=== PATIENT | female | born 1955 | race African-American/Black ===

== ENCOUNTER 2020-06-29 16:08 | Outpatient (CLI) | payer MEDICARE, OTHER, SELFPAY ==
--- NOTE | ~2020-06-29 | MM_ITS ---
EXAMINATION: MM screening [facility] BI w yuli HISTORY: Screening TECHNIQUE: Craniocaudal and mediolateral oblique 3-D tomosynthesis images were obtained and synthetic 2-D images were generated. CAD analysis was submitted and interpreted. COMPARISON: Comparison to multiple prior studies sequentially, with oldest reviewed study dated 04/02. BREAST PARENCHYMAL COMPOSITION: The breasts are extremely dense, which lowers the sensitivity of mamm ography FINDINGS: There is a developing cluster of indeterminate calcifications in the upper outer quadrant o f the left breast, middle third. The right breast is stable without evidence for malignancy. IMPRESSION: 1. Developing cluster of indeterminate calcifications in the left breast. 2. Magnification views are recommended. BI-RADS Category 0: Incomplete: Needs additional imaging evaluation. Reviewed, dictated and finalized at location A.
== END 2020-06-29 16:09 | disposition home or self-care (01) ==
PROVIDERS: Visit Provider Family Medicine
DX: Z12.31 Encounter for screening mammogram for malignant neoplasm of breast (principal); R92.8 Other abnormal and inconclusive findings on diagnostic imaging of breast
CPT/HCPCS: 77063; 77067

== ENCOUNTER 2020-07-25 12:27 | Outpatient (CLI) | payer MEDICARE, OTHER, SELFPAY ==
--- NOTE | ~2020-07-25 | MM_ITS ---
EXAMINATION: MM diagnostic mammo unilat LT HISTORY: Left breast calcifications on screening mammogram TECHNIQUE: Additional images of the left breast were performed. CAD analysis was submitted and interp reted. COMPARISON: 06/29/2020, 05/10/2015, 06/26/2012 FINDINGS: There are grouped coarse heterogeneous calcifications in the middle third of the upper oute r quadrant of the breast at the 2:00 location 6.5 cm from the nipple. No associated mass is identifie d. IMPRESSION: 1. Suspicious left breast calcifications. 2. Stereotactic biopsy is recommended. BI-RADS category 4, suspicious findings. Reviewed, dictated and finalized at location A.
== END 2020-07-25 12:28 | disposition home or self-care (01) ==
PROVIDERS: Visit Provider Nurse Practitioner
DX: R92.1 Mammographic calcification found on diagnostic imaging of breast (principal)
CPT/HCPCS: 77065

== ENCOUNTER 2020-08-01 10:37 | Outpatient (CLI) | payer MEDICARE, OTHER, SELFPAY ==
--- NOTE | ~2020-08-01 | MM_ITS ---
EXAMINATION: MM post biopsy diagnostic LT HISTORY: Post stereotactic biopsy mammogram TECHNIQUE: ML and cc views of left breast immediately following stereotactic biopsy of upper outer qu adrant microcalcifications . COMPARISON: 07/25/2020 diagnostic left mammogram 08/01/2020 left stereotactic breast biopsy FINDINGS: A biopsy marker has successfully deployed in the upper outer quadrant at the site of previo usly reported microcalcifications. Only a few very small microcalcifications remain, the bulk of the microcalcifications having been suc cessfully removed by the stereotactic biopsy. IMPRESSION: Successful stereotactic biopsy of left upper outer quadrant microcalcifications Reviewed, dictated and finalized at location A.
--- NOTE | ~2020-08-01 | MM_ITS ---
EXAMINATION: MM stereotactic bx LT, Specimen Radiograph, Tissue Marker Clip Placement, Unilateral Papa mogram DATE: 08/01/2020 11:47 INDICATION: Abnormal mammogram: Coarse heterogeneous microcalcifications in middle third of upper out er quadrant of left breast at 2:00 6.5 cm from nipple. TECHNIQUE AND FINDINGS: The risks and potential benefits of the procedure were discussed with the patient and written informe d consent was obtained. Timeout procedure was performed. The patient was placed in the prone position on the dedicated stereotactic table with the left breast in lateral medial compression, and the area of interest was localized and targeted utilizing digital imaging with stereotaxis. After sterile preparation of the skin, 1% lidocaine was utilized for local anesthesia at the skin pun cture site and 1% lidocaine with epinephrine was utilized for deeper local anesthesia/is about the bi opsy site. A 9G Exotel vacuum assisted biopsy needle was advanced to the level of the calcification o f interest from a lateral approach utilizing stereotactic guidance and a total of 14 tissue core biop sies were obtained. A specimen radiograph demonstrates that the calcifications of interest are included within the tissue cores. A tissue marker clip was then placed at the biopsy site. A digital mammographic exposure co nfirmed the successful deployment of the biopsy marker. The needle was removed and hemostasis was ac hieved. A sterile bandage was applied. The patient tolerated the procedure well and there is no luana dence of significant immediate complication. The patient was given verbal as well as written postpro cedural instructions prior to discharge from the department. Tissue cores were submitted to surgical pathology for histologic analysis. A 2-view left unilateral digital mammogram was obtained post procedure, demonstrating the tissue rashmi er clip in expected position and all but a few of the targeted microcalcifications no longer present, having been successfully excised. IMPRESSION: 1. Successful stereotactic biopsy of left upper outer quadrant breast microcalcifications, followed by tissue marker clip placement. Please refer to pathology report for histologic analysis. Reviewed, dictated and finalized at Location A. Reviewed, dictated and finalized at location A. IMPRESSION: 1. Successful stereotactic biopsy of left upper outer quadrant breast microca lcifications, followed by tissue marker clip placement. Please refer to pathol ogy report for histologic analysis.
--- NOTE | ~2020-08-01 | MM_ITS ---
MM stereotactic specimen LT DATE: 08/01/2020 11:47 INDICATION: Stenting the biopsy of upper quadrant left breast microcalcifications TECHNIQUE: Digital mammographic noncompression exposure of left upper outer quadrant breast stereotac tic biopsy specimen tissue COMPARISON: 07/25/2020 diagnostic left mammogram 07/25/2020 left stereotactic biopsy FINDINGS: Numerous microcalcifications of interest with associated soft tissue density are present wi thin the specimen tissue. The mammographic features suggest benign calcifications of fibroadenoma. IMPRESSION: Successful stereotactic biopsy yielding numerous microcalcifications of interest from the upper outer quadrant of the left breast Reviewed, dictated and finalized at Location A. Reviewed, dictated and finalized at location A. IMPRESSION: Successful stereotactic biopsy yielding numerous microcalcification s of interest from the upper outer quadrant of the left breast
== END 2020-08-01 10:38 | disposition home or self-care (01) ==
PROVIDERS: Visit Provider Nurse Practitioner Family
DX: R92.1 Mammographic calcification found on diagnostic imaging of breast (principal)
CPT/HCPCS: 19081; 77065; 88305; A4648

== ENCOUNTER 2021-07-11 09:20 | Emergency (ER) | payer MEDICARE, OTHER, SELFPAY ==
[2021-07-11] VITALS (10 sets, daily range): BP systolic 129–132; BP diastolic 73–77; PULSE 65–92; RESP 10–17; TEMP 36.9; O2SAT 98–100
--- NOTE | 2021-07-11 09:52 | ED.GENADULT ---
HPI - General Adult General Chief complaint: Allergic Reaction Stated complaint: lip swelling Time Seen by Provider: 07/11/21 09:38 Source: patient Mode of arrival: ambulatory Limitations: no limitations History of Present Illness HPI narrative: Patient is a 65-year-old female who presents the ED with report of lip swelling. Patient reports she woke up yesterday morning with swelling in her left upper lip. The swelling began to spread diffusely across her upper lip and is now involving her lower lip as well. She took 1 Benadryl [id number] yesterday, but has not taken anything for symptoms today. She denies any swelling of her tongue, difficulty breathing, difficulty swallowing or maintaining secretions, nausea, vomiting, diarrhea, abdominal pain, sore/scratchy/ itchy throat, swelling elsewhere, vision changes, itching, rash, hives. Denies any new face wash, lotions, make-up, laundry detergent. Denies being outside recently or sustaining any bug bites. Patient is on lisinopril since 2004 when she had a CVA. No other new medications. Related Data Home Medications Medication Instructions Recorded Confirmed atorvastatin 40 mg tablet tablet 07/11/21 clopidogrel 75 mg tablet tablet 07/11/21 cyclosporine 0.05 % eye drops in a drp 07/11/21 dropperette (Restasis) lisinopril 40 mg tablet tablet 07/11/21 metformin 1,000 mg tablet tablet 07/11/21 quetiapine 200 mg tablet tablet 07/11/21 ropinirole 2 mg tablet,extended tablet PO 07/11/21 release 24 hr Allergies Allergy/AdvReac Type Severity Reaction Status Date / Time Penicillins Allergy Unknown Rash Verified 07/11/21 09:31 Review of Systems Review of Systems: CONSTITUTIONAL: Denies fever, chills, or sweats. EYES: Denies visual changes, redness, eyelid swelling. ENT: Reports swelling of lips. Denies swelling of tongue, sensation of throat closing, dysphagia, difficulty maintaining secretions, itchy throat, rhinorrhea, congestion, sore throat. CARDIOVASCULAR: Denies chest pain. RESPIRATORY: Denies cough or dyspnea. GASTROINTESTINAL: Denies abdominal pain, nausea, vomiting, or diarrhea. GENITOURINARY: Denies dysuria or hematuria. SKIN: Denies rash, hives, or itching. NEUROLOGIC: Denies headache. All systems reviewed & are unremarkable except as noted in HPI and below PMFSH Past Medical History Medical History (Updated 07/11/21 @ 12:05 by Domenica Montez PA-C) CVA (cerebral vascular accident) Diabetes Hypercholesterolemia Hypertension Surgical History Surgical History (Updated 07/11/21 @ 14:25 by Domenica Montez PA-C) No pertinent past surgical history Social History Social History (Updated 07/11/21 @ 14:25 by Domenica Montez PA-C) Smoking status: Never smoker Exam Narrative: GENERAL: Well appearing, well-nourished, non-toxic, in no acute distress. HEAD: Normocephalic, atraumatic. EYES: PERRL/EOMI, conjunctivae clear bilaterally. No swelling around eyelids. NOSE: Normal, no drainage. THROAT: Pharynx clear, no exudate. MMs moist. No posterior erythema. No swelling of tongue or tonsils. Diffuse swelling of upper and lower lips consistent with angioedema. No mucosal lesions. NECK: Supple. No adenopathy, no masses. RESPIRATORY: Airway patent, respirations nonlabored. Clear to auscultation bilaterally, no rales, rhonchi, wheezing. CARDIOVASCULAR: Regular rate and rhythm without murmurs, rubs, or gallops. Radial pulses 2+ and equal bilaterally. ABDOMINAL: Soft, nontender, nondistended, no hepatosplenomegaly. Normoactive BS. MUSCULOSKELETAL: Moves all extremities. Strength/ROM intact without gross deformities. SKIN: Warm, dry, normal color. No rashes. NEURO: A&O X3. Speech clear. Cranial nerves II-XII grossly intact. Steady gait. No ataxic movements. PSYCHIATRIC: Appropriate mood and affect. Normal interaction. Course Consultations Consultation #1: Discussed case with Dr. Naqvi, PCP, patient presentation and work-up. Advised someone from the off
[2021-07-11] MEDS: methylPREDNISolone SOD SUCC 125 MG VIAL IV PUSH (10:03)
[2021-07-11] MEDS: FAMOTIDINE 20 MG/2 ML VIAL IV PUSH (10:03)
[2021-07-11] MEDS: diphenhydrAMINE HCl INJ 50 MG/ML VIAL IV PUSH (10:03)
--- NOTE | 2021-07-11 10:49 | PC.NURSE ---
Small decrease in swelling to upper lip.
== END 2021-07-11 12:35 | disposition home or self-care (01) ==
PROVIDERS: Emergency Provider Emergency Medicine
DX: T78.3XXA Angioneurotic edema, initial encounter (principal); E11.9 Type 2 diabetes mellitus without complications; E78.00 Pure hypercholesterolemia, unspecified; I10 Essential (primary) hypertension; Z86.73 Personal history of transient ischemic attack (TIA), and cerebral infarction without residual deficits; Z79.84 Long term (current) use of oral hypoglycemic drugs
CPT/HCPCS: 96374; 96375; 99284; J1200; J2930

== ENCOUNTER 2023-01-13 12:27 | Emergency (ER) | payer MEDICARE, OTHER, SELFPAY ==
[2023-01-13] VITALS (12 sets, daily range): BP systolic 131–151; BP diastolic 69–86; PULSE 60–110; RESP 12–18; TEMP 36.9; O2SAT 100
--- NOTE | ~2023-01-13 | CT_ITS ---
EXAMINATION: CTA chest PE protocol DATE: 01/13/2023 20:52 INDICATION: Left chest pain. TECHNIQUE: Computed tomography angiography (CTA) of the chest was performed with 100 mL Omnipaque-350 intravenous contrast timed to evaluate the pulmonary arteries. Coronal maximum intensity projection 3D-reconstructions were created by the technologist. Automated exposure control and iterative reconst ruction technique were employed. The dose-length product was 440.49 mGy-cm. COMPARISON: Chest 2 views 01/13/2023 FINDINGS: There is mild emphysema. There is minimal atelectasis bilaterally. No pleural effusion. The re are nodules in the thyroid measuring up to 8 mm, likely not clinically significant. The heart size is normal. No pericardial effusion. There is diffuse hepatic steatosis. There is no pulmonary embolu s. There is severe thoracic spondylosis. IMPRESSION: 1. No pulmonary embolus. 2. Mild emphysema. Reviewed, dictated and finalized at location E. METRY ASSISTANT
--- NOTE | ~2023-01-13 | XR_ITS ---
EXAMINATION: XR chest 2V DATE: 01/13/2023 17:32 INDICATION: Chest pain. TECHNIQUE: Frontal and lateral views of the chest were obtained. COMPARISON: Chest single view 12/25/2024 FINDINGS: There is mild scarring at the lung apices. No pleural effusion or pneumothorax. The heart s ize is normal. IMPRESSION: 1. Mild scarring at the lung apices. Reviewed, dictated and finalized at location E. ER DEADENER
--- NOTE | 2023-01-13 16:58 | ECG_ITS ---
Measurements Intervals [place] Rate: 62 P: 59 OK: 140 QRS: 1 QRSD: 86 T: 0 QT: 410 QTc: 419 Interpretive Statements SINUS RHYTHM MODERATE VOLTAGE CRITERIA FOR LVH, CONSIDER NORMAL VARIANT [MEETS CRITERIA IN ONE OF: R(aVL), S(V1), R(V5), R(V5/V6)+S(V1)] NO PREVIOUS ECG AVAILABLE FOR COMPARISON Electronically Signed On 01-14-2023 13:22:24 HAZARDOUS MATERIALS ANALYST by Izabella Rios M.D.
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
[2023-01-13 17:24] LABS: Basophils Absolute Auto 0.1 K/mm3 (0.0-0.1); Basophils Percent Auto 0.7 % (0.2-1.2); Eosinophils Absolute Auto 0.1 K/mm3 (0-0.3); Eosinophils Percent Auto 0.9 % (0-4.4); Hematocrit 42.9 % (37.0-47.0); Hemoglobin 13.3 g/dL (12.0-15.0); Immature Granulocyte Absolute 0.02 K/mm3 (0.00-0.031); Immature Granulocyte Percent A 0.3 % (0-0.5); Lymphocytes Absolute Auto 2.26 K/mm3 (0.9-3.2); Lymphocytes Percent Auto 32.2 % (18.3-44.2); Mean Corpuscular Hemoglobin 26.4 pg (26-34); Mean Corpuscular Volume 85.3 fl (80-100); Mean Platelet Volume 8.5 fl (7.4-10.4); Monocytes Absolute Auto 0.4 K/mm3 (0.1-0.6); Monocytes Percent Auto 5.7 % (2.6-8.5); Neutrophils Absolute Auto 4.2 K/mm3 (1.3-6.7); Neutrophils Percent Auto 60.2 % (45.5-73.1); Platelet Count Result 313 k/mm3 (150-375); Red Blood Count 5.03 M/mm3 (4.2-5.4); Red Cell Distribution Width 16.2 % (11.5-14.5)
[2023-01-13 17:36] LABS: INR 0.9; Prothrombin Time 12.8 Seconds (11.1-14.7)
[2023-01-13 17:37] LABS: Partial Thromboplastin Time 23.3 SECONDS (22.3-36.8)
[2023-01-13 17:44] LABS: Alanine Aminotransferase 33 U/L (6-35); Alkaline Phosphatase 90 U/L (38-126); Anion Gap 11 mmol/L (8-16); Aspartate Amino Transferase 33 U/L (14-36); Bilirubin,Total 0.5 mg/dL (0.2-1.3); Blood Urea Nitrogen 11 mg/dL (7-17); Calcium 10.1 mg/dL (8.4-10.2); Carbon Dioxide 23 mmol/L (22-30); Chloride 105 mmol/L (98-107); Estimated CRCL calculation 70 ml/min; Estimated Glomerular Filt Rate > 60; Glucose 94 mg/dL (65-110); Lipase 106 U/L (23-300); Potassium 4.2 mmol/L (3.4-5.0); Sodium 139 mmol/L (137-145)
[2023-01-13 17:52] LABS: NT Pro B Type Natriuretic Pept 110 pg/mL (19.9-100)
[2023-01-13 17:55] LABS: Troponin I < 0.012 ng/mL (0.000-0.034)
[2023-01-13] MEDS: MORPHINE SULFATE (*CRX) 4 MG/ML INJ IV PUSH (20:49)
[2023-01-13] MEDS: SODIUM CHLORIDE 0.9% IV 1,000 ML 999 ML IV CONT (20:49)
[2023-01-13 20:54] LABS: Troponin I < 0.012 ng/mL (0.000-0.034)
[2023-01-13 21:10] LABS: Influenza A QL RT-PCR Negative (Negative); Influenza B QL RT-PCR Negative (Negative); RSV RNA, RT-PCR Negative (Negative); SARS-CoV-2 RNA PCR Negative (Negative)
== END 2023-01-13 22:00 | disposition home or self-care (01) ==
PROVIDERS: Physician Assistant; Emergency Provider Emergency Medicine
DX: R07.89 Other chest pain (principal); Z20.822 Contact with and (suspected) exposure to COVID-19; I10 Essential (primary) hypertension; E78.5 Hyperlipidemia, unspecified; E11.9 Type 2 diabetes mellitus without complications; Z86.73 Personal history of transient ischemic attack (TIA), and cerebral infarction without residual deficits; Z79.84 Long term (current) use of oral hypoglycemic drugs; J43.9 Emphysema, unspecified
CPT/HCPCS: 36415; 71046; 71275; 80053; 83690; 83880; 84484; 85025; 85610; 85730; 87637; 93005; 96361; 96374; 99284; J2270; J7030; Q9967

== ENCOUNTER 2023-07-25 15:02 | Outpatient (CLI) | payer MEDICARE, OTHER, SELFPAY ==
--- NOTE | ~2023-07-25 | XR_ITS ---
XR foot RT min 3V Ordering provider: Jair Merida, CAMPAIGN MANAGER History: . Rt foot pain x several years. no injury . Comparison: None. FINDINGS: BONES: No acute fracture or dislocation. JOINT SPACES: Narrowing of the proximal and distal interphalangeal joints of the lateral 4 fingers. H ammer toes are possible. No tarsal coalition. SOFT TISSUES: Normal. IMPRESSION: No acute osseous abnormality of the right foot. Reviewed, dictated and finalized at location A.
== END 2023-07-25 15:03 | disposition home or self-care (01) ==
LOC: ANHIMG 15:04
PROVIDERS: Visit Provider Registered Nurse
DX: M79.671 Pain in right foot (principal)
CPT/HCPCS: 73630

== ENCOUNTER 2024-03-10 12:49 | Outpatient (CLI) | payer MEDICARE, SELFPAY ==
--- NOTE | ~2024-03-10 | MM_ITS ---
EXAMINATION: MM screening [facility] BI w yuli HISTORY: Screening TECHNIQUE: Craniocaudal and mediolateral oblique 3-D tomosynthesis images were obtained and synthetic 2-D images were generated. CAD analysis was submitted and interpreted. COMPARISON: 06/11/2020 BREAST PARENCHYMAL COMPOSITION: Not dense: There are scattered areas of fibroglandular density. FINDINGS: There is a developing indistinct mass in the upper outer quadrant of the right breast, midd le third. There is a stable mass in the upper outer quadrant of the left breast which was previously biopsy-proven benign. IMPRESSION: 1. Developing right breast mass with indistinct margins in the upper outer quadrant. 2. Additional mammographic views and possible breast ultrasound are recommended. BI-RADS Category 0: Incomplete: Needs additional imaging evaluation. Reviewed, dictated and finalized at location A. RVISOR PHOTOCOMPOSITION IMPRESSION: 1. Developing right breast mass with indistinct margins in the upper outer quad rant. 2. Additional mammographic views and possible breast ultrasound are recommended . BI-RADS Category 0: Incomplete: Needs additional imaging evaluation.
== END 2024-03-10 12:50 | disposition home or self-care (01) ==
PROVIDERS: PCP Registered Nurse; Visit Provider Registered Nurse
DX: Z12.31 Encounter for screening mammogram for malignant neoplasm of breast (principal); R92.8 Other abnormal and inconclusive findings on diagnostic imaging of breast
CPT/HCPCS: 77063; 77067

== ENCOUNTER 2024-04-28 09:20 | Outpatient (CLI) | payer MEDICARE, OTHER, SELFPAY ==
--- NOTE | ~2024-04-28 | US_ITS ---
US arterial ankle brachial ind INDICATION: Osteoporosis TECHNIQUE: Segmental pressures and plethysmographic and Doppler waveforms of the brachial and lower e xtremity arteries were obtained. COMPARISON: None. FINDINGS: Right and left brachial artery pressures of 124 mm Hg and 123 mm Hg, respectively, are concordant (no rmal difference <= 30 mmHg). The right ankle-brachial index (SHANTAL) is 1.15 (normal >= 0.9-1.0). The right great toe-brachial index (TBI) is 0.84 (normal >= 0.60). There is triphasic flow in the posterior tibial artery. There is biph asic flow in the dorsalis pedis artery. The left SHANTAL is 1.14. The left TBI is 0.98. There is biphasic flow in the posterior tibial artery. Th ere is triphasic flow in the dorsalis pedis artery. IMPRESSION: 1. Normal ankle-brachial indices. Reviewed, dictated and finalized at location B.
--- OUTSIDE RECORDS SUMMARY | 2024-04-28 10:21 | XMS_ITS | Clinical Summary ---
Author Organization [facility] Address [address] [place] [address] Care Team Providers Care Plate Cutter Name Role Phone [facility], [address] [place] [address] Primary Care Prov ider Source Comments [facility] [employer],non-owned Affiliates and Associated Physician Practices is amultiple site organization consisting of ambulatory clinics and hospital sitesin [place], [place], [place] and [place]. This disclosure is being madepursuant to the Care Everywhere program and may not contain all information available regarding this patient. Last updated 17.[facility] Allergies Active Allergy Reactions Criticality Noted Date Comments Penicillin G Rash Medium 10/01/2011 Medications * Be aware that medications may not be up to date on this document. Alwaysverify current medications with the patient. Medication Sig Dispensed Refills Start Date End Date Status atorvastatin (LIPITOR) 40 MG tablet Take 40 mg by mouth once daily 07/30/2016 Active QUEtiapine (SEROQUEL) 200 MG tablet Take 200 mg by mouth 3 times daily 09/26/2016 Active lisinopril (PRINIVIL; ZESTRIL) 40 MG tablet Take 40 mg by mouth once daily 08/01/2016 Active metFORMIN (GLUCOPHAGE) 1000 MG tablet 1,000 mg 2 times daily with morning and evening meal 08/01/2016 Active cycloSPORINE (RESTASIS) 0.05 % ophthalmic suspension 2 times daily 09/29/2015 Active clopidogrel (PLAVIX) 75 MG tablet Take 75 mg by mouth once daily 11/11/2017 Active CALTRATE 600+D 600-800 MG-UNIT tablet 08/20/2017 Active LYRICA 75 MG capsule Take by mouth once daily 08/22/2017 Active VITAMIN E PO Take 1 tablet by mouth once daily Active rOPINIRole XL 24hr (REQUIP XL) 2 MG tablet TAKE 1 TABLET BY MOUTH EVERY NIGHT 90 tablet 3 07/23/2021 Active amLODIPine (Norvasc) 10 MG tablet 10/18/2021 Active Active Problems Problem Noted Date Diagnosed Date Borderline glaucoma, open angle with borderline findings 05/08/2021 Disorder of bone and cartilage 05/08/2021 Essential hypertension 05/08/2021 Overview (05/08/2021): reasonable control reasonable control reasonable control reasonable control Hereditary and idiopathic peripheral neuropathy 05/08/2021 Horseshoe tear of retina without detachment 04/11 Other and unspecified hyperlipidemia 05/08/2021 Overview (05/08/2021): at goals post CVA at goals post CVA at goals post CVA Low back pain 05/08/2021 Other chronic pain 05/08/2021 Other depressive disorder 05/08/2021 Presbyopia 05/08/2021 Reason for consultation 05/08/2021 Speech disturbance 05/08/2021 Lumbar radiculopathy 05/08/2021 Current smoker 05/08/2021 Type 2 or unspecified type diabetes mellitus Overview (05/08/2021): Pt appears to be doing well. Will continue current medications (refilled as below). Will check labs as it has been 6 months since last checked. Pt to follow-up in approximately 3-6 months or sooner prn. good control, cont tight glyc control Pt appears to be doing well. Will continue current medications (refilled as below). Will check labs as it has been 6 months since last checked. Pt to follow-up in approximately 3-6 months or sooner prn. good control, cont tight glyc control good control, cont tight glyc control Pt appears to be doing well. Will continue current medications (refilled as below). Will check labs as it has been 6 months since last checked. Pt to follow-up in approximately 3-6 months or sooner prn. Pt appears to be doing well. Will continue current medications (refilled as below). Will check labs as it has been 6 months since last checked. Pt to follow-up in approximately 3-6 months or sooner prn. good control, cont tight glyc control Pt appears to be doing well. Will continue current medications (refilled as below). Will check labs as it has been 6 months since last checked. Pt to follow-up in approximately 3-6 months or sooner prn. good control, cont tight glyc control Type 2 diabetes mellitus wit h diabetic neuropathy, unspecified 08/01/2016 Sequelae of cerebral infarction 12/21/2013 Arterial ischemic stroke, chronic 12/21/2013 Immunizations Name Administration Dates Next Due Pneumococcal Pcv13 Conj 10/19/2014 TD VACCINE 06/03/1990 TDAP (7yrs+) 09/21/2010 ZOSTER VACCINE, LIVE 08/01/2016 Family History Medical History Relation Name Comments Hypertension Father CVA Mother Hypertension Mother Depression Neg Hx Seizures Neg Hx Relation Name Status Comments Father Mother Social History Tobacco Use Types Packs/Day Years Used Date Smoking Tobacco: Some Days Cigarettes Cigars Smokeless Tobacco: Never Tobacco Cessation:Ready to Q uit: No; Counseling Given: Yes Alcohol Use Standard Drinks/Week Comments Not Currently 0 (1 standard drink = 0.6 oz pur e alcohol) Sex and Gender Information Value Date Recorded Sex Assigned at Not on file Gender Identity Not on file Sexual Orientation Not on file Last Filed Vital Signs Vital Sign Reading Time Taken Comments Blood Pressure 122/79 11/27/2021 8:58 AM CDT Pulse 99 11/27/2021 8:58 AM CDT Temperature 36.4 C (97.6 F) 11/27/2021 8:58 AM CDT Respiratory Rate 16 03/21/2015 10:54 AM 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 Oxygen Saturation 98% 11/27/2021 8:58 AM CDT Inhaled Oxygen Concentration - - Weight 82.2 kg (181 lb 3.2 oz) 11/27/2021 8:58 A M CDT Height 167.6 cm (5' 6 ) 11/27/2021 8:58 AM CDT Body Mass Index 29.25 11/27/2021 8:58 AM CDT Plan of Treatment Health Maintenance Due Date Last Done Comments BONE DENSITY TESTING 1955 COLOGUARD (AGES 45-75) - COL ON CA SCREENING 1955 COLON MONITORING 1955 COLONOSCOPY - COLON CA SCREENING 1955 CT COLONOGRAPHY - COLON CA SCREENING 1955 Colorectal Cancer Screening 1955 FIT - COLON CA SCREENING 1955 FLEX SIG - COLON CA SCREENING 1955 MAMMOGRAM 1955 HEPATITIS C SCREENING 09/08/1971 DIABETES-SERUM CREATININE 09/13/1971 Respiratory Syncytial Virus (RSV) Vaccine Pt: or over 60 yrs (1 - Risk 60-74 years 1-dose series) 2013 PNEUMOCOCCAL VACCINE 50+ (2 of 2 - PPSV23) 12/14/2014 10/19/2014 ZOSTER VACCINE (2 of 3) 09/26/2016 08/01/2016 DTAP/TDAP/TD VACCINES (3 - T d or Tdap) 09/21/2020 09/21/2010, 06/03/1990 DIABETES RETINOPATHY SCREENING 05/08/2021 0 03/07/2014, 02/27/2011 DIABETES-FOOT EXAM WITH MONOFILAMENT 05/08/2021 DIABETES-HGB A1C 05/08/2021 COVID-19 VACCINE (1 - 2023-2 5 season) 2023 INFLUENZA VACCINE (#1) 2023 DEPRESSION SCREENING 02/11/2024 DIABETES - URINE PROTEIN SCREENING 02/11/2024 HEPATITIS B VACCINE Aged Out No longe r eligible based on patient's age to complete this topic HIB VACCINE Aged Out No longer eligi ble based on patient's age to complete this topic HPV VACCINE Aged Out No longer eligi ble based on patient's age to complete this topic MENINGOCOCCAL (Group B) VACCINE SHARED DECISION-MAKING Aged Out No longer eligible based on patient's age to complete this topic MENINGOCOCCAL GROUPS A/C/Y/W VACCINE Aged Out No longer eligible b ased on patient's age to complete this topic Care Teams Plate Cutter Relationship Specialty Start Date End Date [facility] [address] [place], [place] [address] PCP - General 08/12/17
--- OUTSIDE RECORDS SUMMARY | 2024-04-28 10:21 | XMS_ITS | Continuity of Care Document ---
Author Name [facility] Organization [facility] Care Team Providers Care Machine Puller Name Role Phone [facility] Unavailable Unavailable Medications Combined list of outpatient medications from Department of Defense and Veterans Affairs facilities.Medications provided include 1) outpatient medications from the last 15 months, and 2) patient-reported medications. Medication Details Route Status Patient Instructions Prescription Expires Prescription Number Last Dispense Date Ordering Provider Order Date Order Qty Source cycloSPORIN E 0.05% (PF) eye drops UD [30EA] See Instruct ions, # 60 EA, 2 total refill(s ), Acute Complet ed 12/11/2022 3 2022 60.0 Ambulat ory Pharmac y Allergies, Adverse Reactions, Alerts Combined list of allergies from Department of Defense and Veterans Affairs facilities. It does not include entries that were removed or entered in error. Substance Category Reaction Severity Reaction type Status Date Reported Comments Source penicillin V pota ium Propensity to adverse reactions to drug Unknown Active 5 STOPS BREATHING Unknown Organiza tion PENICILLINS Propensity to adverse reactions to drug Unknown Active 4 UNSPECIFIED REACTION, RASH, FEVER Unknown Organiza tion Immunizations Combined list of available immunizations from the Department of Defense and Veterans Affairs facilities. Immunization Series Date Given Administered By Site Reaction Lot Number CVX Code Drug Tire Service Supervisor Status Comments Source zoster vaccine live 2016 zzSandra Arm [id number] [employer] complet ed zoster vaccine live 08/01/16 Given Ambulat ory Pharmac y pneumococcal 13-valent conjugate (PCV13) 2014 zNicanoref t Arm [id number] [employer] - [facility] complet ed pneumococ lisy 13-valent conjugate (PCV13) 10/19/14 Given Ambulat ory Pharmac y tetanus, diphtheria, acellular pertu is 2010 zzSandra Arm [id number] Bevy ne complet ed tetanus, diphtheri a, acellular pertussis 09/21/10 Given Ambulat ory Pharmac y tuberculin purified protein derivative 2002 zzLef t Arm [id number] sanofi pasteur complet ed Patient Tolerance : Negative Ambulat ory Pharmac y tuberculin purified protein derivative 1999 zzLef t Arm [id number] [employer] complet ed Patient Tolerance : Negative Ambulat ory Pharmac y tuberculin purified protein derivative 1998 TRANSCR IBED 96 complet ed Patient Tolerance : Negative Ambulat ory Pharmac y tuberculin purified protein derivative 1994 TRANSCR IBED 96 complet ed Patient Tolerance : Negative Ambulat ory Pharmac y Td (adult) 1990 TRANSCR IBED 138 complet ed Td (adult) 06/03/90 Given Ambulat ory Pharmac y Procedures Combined list of: 1) Procedures from Department of Veterans Affairs facilities going back up to thelast 18 months, not all [place] non-surgical procedures are included; 2) All procedures from the Department of Defense facilities. Procedure Procedure Type Code Date Perfomer Comments Sourc e No data available for this section Ambulatory P harmacy Assessment and Plan Combined list of future care activities from Department of Defense and Veterans [facility] facilities (e.g., assessment and plan notes, appointments, orders, and referrals). Additional future care activities may be listed in the Plan of Care section. Result Assessment and Plan Date Source Assessment and Plan No data available for this section 04/28/2024 Ambulatory Pharmacy Functional Status Combined list of recent functional and cognitive assessments recorded at Department of Defense and Veterans Affairs ([place]).[place] Functional [place] Measurement (FIM) Scale: 1 = Total Assistance (Subject = 0% +), 2 = Maximal Assistance (Subject = 25% +), 3 = Moderate Assistance (Subject = 50% +), 4 = Minimal Assistance (Subject = 75% +), 5 = Supervision, 6 = Modified [place] (Device), 7 = Complete [place] (Timely, Safely). Assessment Date/Time Source Assessment Type Assessment Skill Assessment Score Assessment Details No data available for this section
--- OUTSIDE RECORDS SUMMARY | 2024-04-28 10:21 | XMS_ITS | Clinical Summary ---
Author Organization [facility] Address [address] [place] [id number] Care Team Providers Care Machine Zipper Trimmer Name Role Phone Unavailable Primary Care Provider Unavailabl e Social History Tobacco Use Types Packs/Day Years Used Date Smoking Tobacco: Never Assessed Comments Unknown Sex and Gender Information Value Date Recorded Sex Assigned at Not on file Legal Sex Female 7:48 PM CDT Gender Identity Not on file Sexual Orientation Not on file Plan of Treatment Health Maintenance Due Date Last Done Comments Colorectal Cancer Screening Colonoscopy (10 Years) 1955 Hepatitis C 09/13/1971 DTaP, Tdap and Td Vaccines ( 1 - Tdap) 1972 Mammogram Screening 1993 Zoster Vaccines (1 of 2) 09/13/2003 Dexa Scan (General) 2018 Pneumococcal Vaccine: 65+ Ye ars (1 of 1 - PCV) 2018 COVID-19 Vaccine ( - 2023-2 5 season) 2023 Influenza Adult (#1) 2023 RSV Immunization or 60+ Years (1 - 1-dose 75+ series) 2028 Meningococcal B Vaccine Aged Out No l onger eligible based on patient's age to complete this topic Meningococcal Vaccine Aged Out No marixa brittany eligible based on patient's age to complete this topic RSV Immunizations Under 20 Months Aged Out No longer eligible based on patient's age to complete this topic
== END 2024-04-28 09:21 | disposition home or self-care (01) ==
PROVIDERS: PCP Registered Nurse; Visit Provider Registered Nurse
DX: Z13.820 Encounter for screening for osteoporosis (principal); E11.9 Type 2 diabetes mellitus without complications; I70.263 Atherosclerosis of native arteries of extremities with gangrene, bilateral legs
CPT/HCPCS: 93922

== ENCOUNTER 2024-04-29 14:07 | Outpatient (CLI) | payer MEDICARE, OTHER, SELFPAY ==
--- NOTE | ~2024-04-29 | DEXA_ITS ---
Bone Density Report Name: KRISTIN ROBISON Age: 68 Sex: Female Ethnicity: Black Date of : 1955 Indication: postmenopausal; screening for osteoporosis; height loss; Referring Provider: LEIGH, MASHA Dill Study: Bone densitometry was performed. Exam Date: April 29, 2024 Accession number: [id number] Bone Density: Region BMD T-score Z-score Classification AP Spine(L1, L2, L4) 1.003 -0.3 1.1 Normal Femoral Neck (Left) 0.773 -0.7 0.2 Normal Total Hip (Left) 0.828 -0.9 -0.2 Normal Femoral Neck (Right) 0.711 -1.2 -0.2 Osteopenia Total Hip (Right) 0.762 -1.5 -0.6 Osteopenia Total Hip Mean 0.795 -1.2 -0.4 Osteopenia World Health Organization criteria for BMD impression classify patients as: Normal (T-score at or above -1.0), Osteopenia (T-score between -1.0 and -2.5), or Osteoporosis (T-score at or below -2.5). 10-year Fracture Risk(1): Major Osteoporotic Fracture 4.2% Hip Fracture 0.8% Reported Risk Factors: [place] (Black), Neck BMD=0.711, BMI=27.3, smoking (1) FRAX(R) Version 3.08. Fracture probability calculated for an untreated patient. Fracture probability may be lower if the patient has received treatment. Clinical Information Provided by Patient: Smokes Has used the following medications: Vitamin D, Calcium Patient maximum height was 67 Menopause Age: 58 No regular weight bearing exercise Drinks caffeinated beverages Onset of menses at age 10 Number of children 4 Impression: The patient has low bone mass, based on the Right Total Hip T-score. The patient has an estimated ten-year risk of hip fracture of 0.8% and an estimated ten-year risk of major fracture of 4.2%, based on the WHO FRAX algorithm. The patient has risk factors, including: smoking. Discussion: BONE DENSITY IS LOW AT ONE OR MORE SKELETAL SITES. This patient's lowest T-score is low at one or more skeletal sites. It meets the World Health Organization's (WHO) criteria for ?low bone mass? (T-score between -1.0 and -2.5). The patient's 10-year risk of fracture as calculated by FRAX is less than the threshold where pharmacological therapy is recommended by the National Osteoporosis Foundation (NOF). However, all treatment decisions require clinical judgment and consideration of individual patient factors, including patient preferences, comorbidities, previous drug use, risk factors not captured in the FRAX model (e.g., frailty, falls, vitamin D deficiency, increased bone turnover, interval significant decline in bone density) and possible under or overestimation of fracture risk by FRAX. The patient should follow a healthful lifestyle (good nutrition with adequate calcium and vitamin D, and appropriate weight-bearing exercise). Follow-Up: Consider repeating this study in 2 to 3 years to reassess this patient's status, or sooner if there is some new clinical indication. Reported by: MIGUEL ÁNGEL on 04/29/2024 2:41:00 PM. Reviewed, dictated and finalized at location AOswaldo [place]
--- OUTSIDE RECORDS SUMMARY | 2024-04-29 14:35 | XMS_ITS | Continuity of Care Document ---
Author Name [facility] Organization [facility] Care Team Providers Care Auditing Specialist Name Role Phone [facility] Unavailable Unavailable Medications Combined list of outpatient [...] Site Reaction Lot Number CVX Code Drug Piece Goods Clerk Status Comments Source [facility] [place] [facility] [id number] [employer] Inc complet ed zoster vaccine live 08/01/16 Given Ambulat ory Pharmac y pneumococcal 13-valent conjugate (PCV13) 2014 zNicanoref t Arm [id number] [employer] complet ed pneumococ lisy 13-valent conjugate (PCV13) 10/19/14 Given Ambulat ory Pharmac y tetanus, diphtheria, acellular pertu is 2010 zzSandra Arm [id number] 115 [employer] complet ed tetanus, diphtheri a, acellular pertussis 09/21/10 Given Ambulat ory Pharmac y tuberculin purified protein derivative 2002 zzLef t Arm [id number] sanofi pasteur complet ed Patient Tolerance : Negative Ambulat ory Pharmac y tuberculin purified protein derivative 1999 zzLef t Arm [id number] [employer]ck & [employer] complet ed [...] up to thelast 18 months, not all [place] non-surgical procedures are included; 2) All procedures from the Department of Defense facilities. Procedure Procedure Type Code Date Perfomer Comments Sourc e No data available for this section Ambulatory P harmacy Assessment and Plan Combined list of future care activities from Department of Defense and Veterans [facility] facilities (e.g., assessment and plan notes, appointments, orders, and referrals). Additional future care activities may be listed in the Plan of Care section. Result Assessment and Plan Date Source Assessment and Plan No data available for this section 04/29/2024 Ambulatory Pharmacy Functional Status Combined list of recent functional and cognitive assessments recorded at Department of Defense and [facility] Affairs ([place]).[place] Functional [place] Measurement (FIM) Scale: 1 = Total Assistance (Subject = 0% +), 2 = Maximal Assistance (Subject = 25% +), 3 = Moderate Assistance (Subject = 50% +), 4 = Minimal Assistance (Subject = 75% +), 5 = Supervision, 6 = Modified [place] (Device), 7 = Complete [place] (Timely, Safely). Assessment Date/Time Source Assessment Type Assessment Skill Assessment Score Assessment Details No data available for this section
--- OUTSIDE RECORDS SUMMARY | 2024-04-29 14:35 | XMS_ITS | Clinical Summary ---
Author Organization [facility] Address [address] [place] [address] Care Team Providers Care Facility Planner Name Role Phone [facility], [address] [place] [address] Primary Care Prov ider Source Comments [facility] [employer],non-owned Affiliates and Associated Physician Practices is amultiple site organization consisting of ambulatory clinics and hospital sitesin [place], [place] and [place]. This disclosure is being madepursuant to the Care Everywhere program and may not contain all information available regarding this patient. 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
--- OUTSIDE RECORDS SUMMARY | 2024-04-29 14:35 | XMS_ITS | Clinical Summary ---
Author Organization [facility] Address [address] [place] [address] Care Team Providers Care Wood Heel Flap Trimmer Name Role Phone Unavailable Primary Care [...]
== END 2024-04-29 14:08 | disposition home or self-care (01) ==
LOC: ANHIMG 14:07
PROVIDERS: PCP Registered Nurse; Visit Provider Registered Nurse
DX: M81.0 Age-related osteoporosis without current pathological fracture (principal); M85.851 Other specified disorders of bone density and structure, right thigh
CPT/HCPCS: 77080

== ENCOUNTER 2024-11-19 00:27 | Day surgery (SDC) | payer MEDICARE, OTHER, SELFPAY ==
[2024-11-05 14:06] VITALS: BMI 25.9
--- NOTE | 2024-11-05 14:25 | PC.NURSE ---
Addendum entered by Sabina Weiss RN 11/08/24 13:00: Due to date change from 11/17/24 to 11/19/24 last dose of Plavix will be on 11/11/2024 instead of Original Note: Spoke with DAUGHTER JUAN regarding medication PLAVIX. PATIENT verbalizes understanding that the last dose is to be taken on 11/09/2024 and the Endoscopist will instruct them when to restart after the procedure.
[2024-11-19 12:50] VITALS: BP 146/74; PULSE 88; RESP 18; TEMP 36.6; O2SAT 100
[2024-11-19] MEDS: LACTATED RINGERS 1,000 ML 150 ML IV CONT (13:03)
--- NOTE | 2024-11-19 13:12 | SUR.PREOP ---
1305: PT AND DAUGHTER MADE AWARE PROCEDURE ROOM IS RUNNING BEHIND, PT AND FAMILY STATES UNDERSTANDING.
--- NOTE | 2024-11-19 13:21 | WPDANESEPPF ---
Anes - Initial Pre Proc Eval Procedure: Operation Date: 11/19/24 14:00 Proposed Procedures p Screening Colonoscopy - Augustine Hawthorne MD Date/Time: 11/19/24 13:21 Surgeon: Augustine Hawthorne MD Pre Op Diagnosis: Encounter for screening for malignant neoplasm of Patient Data Age: 69 Gender: F Height: 1.7 m Weight: 74.2 kg Last Vital Signs Temp 36.6 C 11/19/24 12:50 Pulse 88 11/19/24 12:50 Resp 18 11/19/24 12:50 BP 146/74 H 11/19/24 12:50 Pulse Ox 100 11/19/24 12:50 O2 Del Method Room Air 11/19/24 12:50 Allergies Allergy/AdvReac Type Severity Reaction Status Date / Time Penicillins Allergy Unknown Rash Verified 11/19/24 12:48 aspirin AdvReac Unknown Verified 11/19/24 12:48 Home Medications ?Medication ?Instructions ?Recorded ?Confirmed ?Type atorvastatin 40 mg tablet 40 mg PO QPM 07/11/21 11/19/24 History clopidogrel 75 mg tablet 75 mg PO DAILY 07/11/21 11/19/24 History cyclosporine 0.05 % eye drops in a drp 07/11/21 History dropperette (Restasis) lisinopril 40 mg tablet tablet 07/11/21 History metformin 1,000 mg tablet 1,000 mg PO BID 07/11/21 11/19/24 History quetiapine 200 mg tablet 200 mg PO HS 07/11/21 11/19/24 History ropinirole 2 mg tablet,extended tablet PO 07/11/21 History release 24 hr amlodipine 10 mg tablet 10 mg PO DAILY 11/05/24 11/19/24 History pramipexole 0.125 mg tablet 0.125 mg PO QPM 11/05/24 11/19/24 History Laboratory Tests 11/19/24 12:57 POC Capillary Glucose 123 H mg/dl (65-105) Patient hx anesthesia problems: none Family hx anesthesia problems: none Results Review: All pre-operative results and documents have been reviewed as part of the pre-operative evaluation. [facility] Past Medical History Medical History CVA (cerebral vascular accident) Diabetes Hypercholesterolemia Hypertension Surgical History Surgical History No pertinent past surgical history Social History Social History (System 03/11/24 @ 11:47 by Thea Higginbotham) Years smoked: 25 Smoking status: Current some day smoker Tobacco type: cigarettes and cigars Alcohol intake: current Substance use: never Substance use type: does not use Living arrangements: with family Spiritual care concerns: No Anes - Eval Final PreProcedure Day of Procedure 11/19/24 13:21 Patient weight: overweight Heart: regular rate and rhythm Lungs: clear to auscultation Airway: Mallampati scale class II Neurological: alert and oriented Last oral intake: >/= 8 hours ASA classification: III Emergent: no Anesthetic plan: proceed Anesthesia type and monitoring: general GIVS and standard monitoring Results Review: All pre-operative results and documents have been reviewed as part of the pre-operative evaluation. Informed Consent: The patient's anesthetic plan and its attendant risks and benefits were discussed with the patient/family/POA. Questions were solicited and answers provided to the satisfaction of the patient/family/POA.
--- NOTE | 2024-11-19 13:56 | PM.IMHP ---
H&P: HPI History of Present Illness Date/Time: 11/19/24 13:56 Chief Complaint: Screening colonoscopy Narrative: This is the patient's first colonoscopy after more than 10 years. There are no GI symptoms and there is no family history of colorectal cancer. Review of Systems Review of Systems: All systems reviewed & are unremarkable except as noted in HPI and below PMFSH Past Medical History Medical History CVA (cerebral vascular accident) Diabetes Hypercholesterolemia Hypertension Surgical History Surgical History No pertinent past surgical history Social History Social History (System 03/11/24 @ 11:47 by Thea Higginbotham) Years smoked: 25 Smoking status: Current some day smoker Tobacco type: cigarettes and cigars Alcohol intake: current Substance use: never Substance use type: does not use Living arrangements: with family Spiritual care concerns: No Meds Home Medications and Allergies Home Medications ?Medication ?Instructions ?Recorded ?Confirmed ?Type atorvastatin 40 mg tablet 40 mg PO QPM 07/11/21 11/19/24 History clopidogrel 75 mg tablet 75 mg PO DAILY 07/11/21 11/19/24 History cyclosporine 0.05 % eye drops in a drp 07/11/21 History dropperette (Restasis) lisinopril 40 mg tablet tablet 07/11/21 History metformin 1,000 mg tablet 1,000 mg PO BID 07/11/21 11/19/24 History quetiapine 200 mg tablet 200 mg PO HS 07/11/21 11/19/24 History ropinirole 2 mg tablet,extended tablet PO 07/11/21 History release 24 hr amlodipine 10 mg tablet 10 mg PO DAILY 11/05/24 11/19/24 History pramipexole 0.125 mg tablet 0.125 mg PO QPM 11/05/24 11/19/24 History Allergies Allergy/AdvReac Type Severity Reaction Status Date / Time Penicillins Allergy Unknown Rash Verified 11/19/24 12:48 aspirin AdvReac Unknown Verified 11/19/24 12:48 Vital Signs Vital Signs - 24 hr 11/19/24 12:50 Temperature 97.8 F Pulse Rate 88 Respiratory Rate 18 Blood Pressure 146/74 H Pulse Oximetry 100 Oxygen Delivery Room Air Exam Const: General: cooperative and healthy appearing Resp: Effort & Inspection: normal respiratory effort and able to speak in complete sentences Auscultation: clear to auscultation bilaterally Cardio: Rate: regular rate Rhythm: regular rhythm GI: Inspection: normal to inspection GI Palp: No No hepatosplenomegaly present Auscultation: normal bowel sounds Rectal Exam: deferred Skin: General skin exam: normal color Psych: Appearance: grossly normal Mental Status: mental status grossly normal Assessment and Plan Assessment and plan (1) Encounter for screening colonoscopy: Code(s): Z12.11 - Encounter for screening for malignant neoplasm of colon Status: Acute Assessment and Plan: The patient is deemed a good candidate for the procedure. Consent signed. Will proceed.
[2024-11-19 14:22] VITALS: BP 122/73; PULSE 73; RESP 25; O2SAT 100
[2024-11-19 14:32] VITALS: BP 127/73; PULSE 66; RESP 18; O2SAT 96
[2024-11-19 14:42] VITALS: BP 116/73; PULSE 69; RESP 18; O2SAT 98
== END 2024-11-19 14:58 | disposition home or self-care (01) ==
PROVIDERS: PCP Family Medicine; Visit Provider Internal Medicine Gastroenterology
PROC: 0DJD8ZZ Inspection of Lower Intestinal Tract, Via Natural or Artificial Opening Endoscopic (ICD-10-PCS; CPT 45378; principal; 2024-11-19 14:00)
DX: Z12.11 Encounter for screening for malignant neoplasm of colon (principal); K57.30 Diverticulosis of large intestine without perforation or abscess without bleeding; E11.9 Type 2 diabetes mellitus without complications; E78.00 Pure hypercholesterolemia, unspecified; I10 Essential (primary) hypertension; F17.210 Nicotine dependence, cigarettes, uncomplicated; F17.290 Nicotine dependence, other tobacco product, uncomplicated; Z79.02 Long term (current) use of antithrombotics/antiplatelets; Z79.84 Long term (current) use of oral hypoglycemic drugs; Z86.79 Personal history of other diseases of the circulatory system
CPT/HCPCS: G0121; 82948; J2003; J2704; J7120